=== PATIENT | female | born 1985 | race Caucasian/White ===

== ENCOUNTER 2020-06-27 09:40 | Outpatient (CLI) | payer BC, SELFPAY ==
--- NOTE | ~2020-06-27 | CT_ITS ---
EXAMINATION: CT diagnostic chest wo con DATE: 06/27/2020 10:05 INDICATION: Lung nodules TECHNIQUE: Computed tomography (CT) of the chest was performed without intravenous contrast. The dose -length product (DLP) was 128.68 mGy-cm. Automated exposure control and iterative reconstruction tech [employer] were employed. COMPARISON: 04/24/2019 FINDINGS: The previously described left lower lobe nodules are no longer evident, consistent with res olved infection/inflammation. No new pulmonary nodules are identified. There is minimal groundglass o pacity of the right lower lobe, likely infectious or inflammatory. No pleural effusion or pneumothora x is identified. No pathologically enlarged thoracic lymph nodes are identified. The heart size is no rmal. IMPRESSION: 1. Resolved left lower lobe nodules. 2. Small area of groundglass opacity of the right lower lobe, likely infectious or inflammatory. Reviewed, dictated and finalized at location A. RCOACH DRIVER
== END 2020-06-27 09:41 | disposition home or self-care (01) ==
PROVIDERS: PCP Family Medicine; Visit Provider Family Medicine
DX: R91.8 Other nonspecific abnormal finding of lung field (principal)
CPT/HCPCS: 71250

== ENCOUNTER 2020-09-22 11:19 | Outpatient (CLI) | payer BC, SELFPAY ==
--- NOTE | ~2020-09-22 | XR_ITS ---
EXAMINATION: XR lumbar spine 6V w bending EXAM DATE: 09/22/2020 11:41 INDICATION: Muscle spasm of the back. TECHNIQUE: Lumber spine frontal, lateral, bilateral oblique projections. Coned down frontal and lat eral L5-S1 lumbar projections for interpretation. Additional lateral flexion and lateral extension p rojections obtained. There are no prior studies for comparison. FINDINGS: There is no spondylolysis. The vertebral bodies are aligned in the AP dimension. Minimal monique mbar disc disease. Mild lower lumbar facet arthropathy. L5 limbus vertebral body. Sacrum, sacroiliac joints, sacral arcuate lines are intact. Paraspinal soft tissue is unremarkable. IMPRESSION: Mild lumbar facet arthropathy. Reviewed, dictated and finalized at location A.
== END 2020-09-22 11:20 | disposition home or self-care (01) ==
PROVIDERS: PCP Family Medicine; Visit Provider Family Medicine
DX: M62.830 Muscle spasm of back (principal); R26.9 Unspecified abnormalities of gait and mobility
CPT/HCPCS: 72114